=== PATIENT | female | born 1965 | race Caucasian/White ===

== ENCOUNTER 2018-12-19 09:26 | Day surgery (SDC) | payer OTHER ==
[~2018-12-19 09:26] MED LIST: Buffered Lidocaine 1% SYRIN* 1 ML/SYRINGE INTRADERM ONE; Lactated Ringers 1000 ML Bag* 1,000 ML IV SCH; MITOMYCIN SCH; STERILE WATER FOR INJ SCH
[2018-12-19] MEDS ORDERED: fentaNYL* 50 MCG/ML 2 ML VIAL (100 MCG VIAL) ONE (11:02)
[2018-12-19] MEDS ORDERED: Propofol* 10 MG/ML 20 ML BTL ONE (11:02)
[2018-12-19] MEDS ORDERED: Midazolam* 1 MG/ML 2 ML VIAL (2 MG) ONE (11:02)
[2018-12-19] MEDS ORDERED: BSS OPTH.SOL* BTL ONE ×2 (11:14→11:55)
[2018-12-19] MEDS ORDERED: Neomycin/Polymy/Dex OPHTH.OIN* 3.5 GM ONE (11:15)
[2018-12-19] MEDS ORDERED: Phenylephrine OPHTH SOL 2.5%* 2 ML ONE (11:15)
[2018-12-19] MEDS ORDERED: Gelfoam 12-7 ADSORBABL SPONGE* 1 EA SPONGE ONE (11:15)
[2018-12-19] MEDS ORDERED: Tetracaine 0.5% OPTH.SOL 15ML* BTL ONE (11:15)
[2018-12-19] MEDS ORDERED: Lidocain 1% EPI 1:100,000 * 30 ML MDV ONE (11:15)
[2018-12-19] MEDS ORDERED: Povidone Iodine 5% OPTH* 30 ML BTL ONE (11:15)
[2018-12-19] MEDS ORDERED: oxyCODONE/Acetamin 5/325 MG* TAB PO PRN (11:51)
[2018-12-19] MEDS ORDERED: fentaNYL* 50 MCG/ML 2 ML VIAL (100 MCG VIAL) IV PRN (11:51)
[2018-12-19] MEDS ORDERED: Naloxone* 0.4 MG/ML 1 ML VIAL IV PRN (11:51)
[2018-12-19] MEDS ORDERED: Ondansetron INJ* 2 MG/ML VIAL IV PRN (11:51)
[2018-12-19] MEDS ORDERED: Acetaminophen TAB* 325 MG PO PRN (11:51)
[2018-12-19 12:30] VITALS: BP 114/73
--- NOTE | 2018-12-19 13:57 | OP ---
DATE OF OPERATION: 12/19/18 [facility] DATE OF : 61 SURGEON: Onur Salgado MD POSTAL S[employer]ING OFFICER: None. ANESTHESIA: Local with intravenous sedation. PRE-OP DIAGNOSIS: Lesion of conjunctiva temporally, left eye. POST-OP DIAGNOSIS: Lesion of conjunctiva temporally, left eye. OPERATIVE PROCEDURE: Excision of lesion of conjunctiva, left eye. COMPLICATIONS: None. BLOOD LOSS: Minimal. DESCRIPTION OF PROCEDURE: The patient was brought to the operating room and received intravenous sedation. A drop of tetracaine was placed in her left eye. The patient was prepped and draped in typical fashion for ophthalmic surgery. Attention was directed to the left eye where a speculum was placed. A 6-0 silk suture was used for traction by placing a partial thickness through the cornea near the temporal limbus. The eye was brought into adduction. An approximately 5 x 5 mm elevated inflamed lesion was noted on the surface of the eye at the level of the conjunctiva. A Susannah scissors was used to atraumatically excise this lesion including approximately 2 mm of what appeared to be healthy conjunctiva on all aspects. The lesion was dissected in a lamellar fashion from the underlying sclera with relative ease. Lesion was sent to pathology for examination. The underlying conjunctival base was cauterized to achieve hemostasis. At this point, mitomycin 0.4 mg/mL was used to impregnate a Gelfoam pledget, which had been cut to size. The Gelfoam pledget was placed on the original lesion site for 1 minute. Copious irrigation followed with an entire bottle of balanced saline solution. Following this, a piece of amniotic membrane graft was cut to size. Tisseel was placed on the original lesion and the amniotic membrane was overlied. It was squeegeed flat and the ends were pinched to form a nice seal. The traction suture was removed. The speculum was gently removed from the eye. The eye was closed, patched, and shielded after a small amount of Maxitrol ointment was applied. The patient was sent to recovery room in stable condition with postop instructions and followup appointment given. [id number] #: [id number]
== END 2018-12-19 12:21 | disposition home or self-care (01) ==
LOC: OREAST 09:26
PROVIDERS: ATTEND Ophthalmology
DX: D09 Carcinoma in situ of other and unspecified sites (principal)
CPT/HCPCS: 88305; A9270-GY; C1776; J2250; J2704; J3010; J9280; V2790